=== PATIENT | female | born 1970 | race Caucasian/White ===

== ENCOUNTER 2018-08-12 05:56 | Day surgery (SDC) | payer OTHER | END 2018-08-12 11:11 | disposition home or self-care (01) | LOC: GIL 05:56 | DX: R12 Heartburn (principal); K44.9 Diaphragmatic hernia without obstruction or gangrene; K21.9 Gastro-esophageal reflux disease without esophagitis; K29.70 Gastritis, unspecified, without bleeding | CPT/HCPCS: 43239; 84703; 88305 ==